=== PATIENT | female | born 1935 | race Two or more races ===

== ENCOUNTER 2018-09-14 15:58 | Emergency (ER) | payer MEDICARE, MEDICAID ==
[~2018-09-14] VITALS: Ht 157.5 cm; Wt 79.4 kg
--- NOTE | 2018-09-14 16:10 | NUR ---
PT PRESENTED TO THE WITH A C/O RT KNEE AND RT FOOT PAIN X 3 WKS.
--- NOTE | 2018-09-14 17:28 | NUR ---
PT IS REFUSING THE FOOT XRAY AND ONLY WANTS THE KNEE XRAY.
[2018-09-14] MEDS: HYDROCODONE/APAP 5/325MG 1 EACH TABLET PO ONE (17:30)
[2018-09-14] MEDS ORDERED: HYDROCODONE/APAP 5/325MG 1 EACH TABLET ONE (17:47)
[2018-09-14] MEDS ORDERED: TDAP [DIPH/PERTUSSIS/TET] 0.5 ML VIAL IM ONE (17:47)
[2018-09-14] MEDS ORDERED: BACI/NEOM/POLY B OINT PKT 1 UDPKT PACKET ONE (17:47)
--- NOTE | 2018-09-14 17:50 | NUR ---
PT IS STILL IN CT.
[2018-09-14] MEDS: LIDOCAINE HCL/PF 1% 30 ML VIAL TP ONE (18:13)
[2018-09-14] MEDS: BACI/NEOM/POLY B OINT PKT 1 UDPKT PACKET TP ONE (18:13)
[2018-09-14] MEDS: TDAP [DIPH/PERTUSSIS/TET] 0.5 ML VIAL IM ONE (18:14)
--- NOTE | 2018-09-14 19:24 | NUR ---
Patient discharged to home in stable condition. Written and verbal after care instructions given. Patient verbalizes understanding of instruction AND RX. PT AMBULATED TO THE AND WAS TAKEN TO THE CAR VIA . PT AMBULATED FROM TO THE CAR WITH A CANE. PT'S VSS. NAD NOTED. PT DENIES PAIN AT THIS TIME. PT'S DAUGHTER IS DRIVING PT HOME.
[2018-09-14 19:29] VITALS: BP 146/80
== END 2018-09-14 19:30 | disposition home or self-care (01) ==
LOC: ER 16:09
DX: M17.11 Unilateral primary osteoarthritis, right knee (principal); M25.461 Effusion, right knee; I10 Essential (primary) hypertension; Z95.0 Presence of cardiac pacemaker
CPT/HCPCS: 72131; 73564; 93971; 99284; A4606; J3490; 90715